=== PATIENT | male | born 1960 | race Caucasian/White ===

== ENCOUNTER 2019-03-23 08:08 | Outpatient (RCR) | payer OTHER, SELFPAY ==
[2019-01-19 09:01] LABS: INR 2.7; Prothrombin Time 27.8 Seconds (9.64-11.0)
[2019-02-23 08:40] LABS: INR 2.3; Prothrombin Time 24.4 Seconds (9.64-11.0)
[2019-03-23 08:31] LABS: Prothrombin Time 20.5 Seconds (9.64-11.0)
== END 2019-04-19 23:59 | disposition home or self-care (01) ==
LOC: CHSLAB 08:08
PROVIDERS: PCP Internal Medicine; Visit Provider Internal Medicine
DX: Z79.01 Long term (current) use of anticoagulants (principal)
CPT/HCPCS: 36415; 85610

== ENCOUNTER 2019-06-30 14:56 | Outpatient (CLI) | payer OTHER, SELFPAY ==
[2019-06-30 15:09] LABS: Basophils Absolute Auto 0.03 K/mm3 (0.00-0.10); Basophils Percent Auto 0.2 % (0.0-1.0); Eosinophils Absolute Auto 0.13 K/mm3 (0.02-0.50); Hemoglobin 15.7 g/dL (14.0-18.0); Immature Granulocyte Absolute 0.04 K/mm3 (0.00-0.00); Immature Granulocyte Percent A 0.3 % (0.0-0.0); Lymphocytes Absolute Auto 0.93 K/mm3 (1.10-4.50); Lymphocytes Percent Auto 7.2 % (18.0-42.0); Mean Corpuscular HGB Conc 34.9 g/dL (32.0-36.0); Mean Corpuscular Hemoglobin 31.5 pg (27.0-31.0); Mean Corpuscular Volume 90.4 fL (78.0-102.0); Mean Platelet Volume 10.7 fl (8.7-11.0); Monocytes Percent Auto 6.2 % (2.0-11.0); Neutrophils Absolute Auto 10.9 K/mm3 (1.7-7.2); Neutrophils Percent Auto 85.1 % (50.0-70.0); Platelet Count Result 155 K/mm3 (150-420); Red Blood Count 4.98 M/mm3 (4.70-6.10); Red Cell Distribution Width 12.4 % (11.6-14.4); White Blood Count 12.9 K/mm3 (4.8-10.8)
[2019-06-30 15:21] LABS: INR 2.2; Prothrombin Time 22.2 Seconds (9.64-11.0)
[2019-06-30 15:29] LABS: Alanine Aminotransferase 36 U/L (16-63); Albumin Level 4.1 g/dL (3.4-5.0); Alkaline Phosphatase 90 U/L (46-116); Anion Gap 14.9 mmol/L (7-16); Aspartate Amino Transferase 19 U/L (15-37); Bilirubin,Total 1.4 mg/dL (0.00-1.00); Blood Urea Nitrogen 11 mg/dL (7-18); Carbon Dioxide 27 mmol/L (21-32); Chloride 100 mmol/L (98-108); Estimated Glomerular Filt Rate > 60; Glucose 117 mg/dL (70-99); Osmolality Calculated 286 mOsm/kg (285-295); Potassium 3.9 mmol/L (3.5-5.1); Sodium 138 mmol/L (136-145); Total Protein 7.5 g/dL (6.4-8.2)
== END 2019-06-30 14:57 | disposition home or self-care (01) ==
LOC: CHSLAB 14:59
PROVIDERS: PCP Internal Medicine; Visit Provider Internal Medicine
DX: L03.113 Cellulitis of right upper limb (principal); R65.10 Systemic inflammatory response syndrome (SIRS) of non-infectious origin without acute organ dysfunction
CPT/HCPCS: 36415; 80053; 85025; 85610; 87040; 87070; 87075; 87077; 87186; 87205

== ENCOUNTER 2019-07-06 09:37 | Outpatient (RCR) | payer OTHER, SELFPAY ==
[2019-04-20 08:24] LABS: INR 2.1; Prothrombin Time 21.4 Seconds (9.64-11.0)
[2019-05-25 08:24] LABS: INR 2.3; Prothrombin Time 23.2 Seconds (9.64-11.0)
[2019-06-22 08:03] LABS: INR 2.3; Prothrombin Time 23.2 Seconds (9.64-11.0)
[2019-07-06 09:58] LABS: INR 2.1; Prothrombin Time 20.9 Seconds (9.64-11.0)
== END 2019-07-19 23:59 | disposition home or self-care (01) ==
LOC: CHSLAB 09:37
PROVIDERS: PCP Internal Medicine; Visit Provider Internal Medicine
DX: Z79.01 Long term (current) use of anticoagulants (principal)
CPT/HCPCS: 36415; 85610

== ENCOUNTER 2019-08-10 08:18 | Outpatient (CLI) | payer OTHER, SELFPAY ==
[2019-08-10 08:33] LABS: Basophils Absolute Auto 0.04 K/mm3 (0.00-0.10); Basophils Percent Auto 0.6 % (0.0-1.0); Eosinophils Absolute Auto 0.28 K/mm3 (0.02-0.50); Hematocrit 45.1 % (40.0-54.0); Hemoglobin 15.6 g/dL (14.0-18.0); Immature Granulocyte Absolute 0.02 K/mm3 (0.00-0.00); Immature Granulocyte Percent A 0.3 % (0.0-0.0); Lymphocytes Absolute Auto 1.15 K/mm3 (1.10-4.50); Lymphocytes Percent Auto 16.4 % (18.0-42.0); Mean Corpuscular HGB Conc 34.6 g/dL (32.0-36.0); Mean Corpuscular Hemoglobin 31.8 pg (27.0-31.0); Mean Corpuscular Volume 91.9 fL (78.0-102.0); Mean Platelet Volume 10.8 fl (8.7-11.0); Monocytes Absolute Auto 0.36 K/mm3 (0.10-0.90); Monocytes Percent Auto 5.1 % (2.0-11.0); Neutrophils Absolute Auto 5.2 K/mm3 (1.7-7.2); Neutrophils Percent Auto 73.6 % (50.0-70.0); Platelet Count Result 145 K/mm3 (150-420); Red Blood Count 4.91 M/mm3 (4.70-6.10); Red Cell Distribution Width 12.6 % (11.6-14.4)
[2019-08-10 08:34] LABS: Add Urine Microscopic? NO; Appearance Urine Clear (Clear); Bilirubin Urine Negative (Negative); Blood Urine Negative (Negative); Color Urine Yellow (Yellow); Glucose Urine UA Negative (Negative); Ketones Urine Negative (Negative); Leukocyte Esterase Ur Negative (Negative); Nitrate Urine Negative (Negative); Protein Urine Negative (Negative); Specific Grav Ur 1.025 (1.010-1.020); Urobilinogen Urine 0.2 mg/dL (0.2-1.0); pH Urine 6.5 (5.0-8.0)
[2019-08-10 08:46] LABS: INR 2.9; Prothrombin Time 28.9 Seconds (9.64-11.0)
[2019-08-10 09:51] LABS: Alanine Aminotransferase 35 U/L (16-63); Albumin Level 3.8 g/dL (3.4-5.0); Alkaline Phosphatase 83 U/L (46-116); Anion Gap 11.1 mmol/L (7-16); Aspartate Amino Transferase 28 U/L (15-37); Bilirubin,Total 0.5 mg/dL (0.00-1.00); Blood Urea Nitrogen 15 mg/dL (7-18); Calcium 8.4 mg/dL (8.5-10.1); Carbon Dioxide 29 mmol/L (21-32); Chloride 105 mmol/L (98-108); Cholesterol 173 mg/dL (0-200); Estimated Glomerular Filt Rate > 60; Glucose 94 mg/dL (70-99); HDL Direct 46 mg/dL (40-60); LDL Cholesterol Calculated 109 mg/dL (<130); Osmolality Calculated 292 mOsm/kg (285-295); Potassium 4.1 mmol/L (3.5-5.1); Prostate Specific Antigen 0.3 ng/mL (< OR = 4.0); Sodium 141 mmol/L (136-145); Thyroid Stimulating Hormone 0.98 uIU/mL (0.36-3.74); Total Protein 6.6 g/dL (6.4-8.2); Triglycerides 92 mg/dL (0-150)
== END 2019-08-10 08:19 | disposition home or self-care (01) ==
LOC: CHSLAB 08:19
PROVIDERS: PCP Internal Medicine; Visit Provider Internal Medicine
DX: Z00.00 Encounter for general adult medical examination without abnormal findings (principal); E78.5 Hyperlipidemia, unspecified; Z79.01 Long term (current) use of anticoagulants; Z12.5 Encounter for screening for malignant neoplasm of prostate
CPT/HCPCS: 36415; 80053; 80061; 81003; 84153; 84443; 85025; 85610; G0103

== ENCOUNTER 2019-12-07 07:56 | Outpatient (RCR) | payer OTHER, SELFPAY ==
[2019-09-22 08:51] LABS: INR 2.7; Prothrombin Time 26.8 Seconds (9.64-11.0)
[2019-10-27 08:24] LABS: INR 2.9; Prothrombin Time 28.5 Seconds (9.64-11.0)
[2019-11-23 09:01] LABS: INR 1.6; Prothrombin Time 16.4 Seconds (9.64-11.0)
[2019-12-07 08:20] LABS: INR 2.1; Prothrombin Time 20.9 Seconds (9.64-11.0)
== END 2019-12-21 23:59 | disposition home or self-care (01) ==
LOC: CHSLAB 07:56
PROVIDERS: PCP Internal Medicine; Visit Provider Internal Medicine
DX: Z79.01 Long term (current) use of anticoagulants (principal)
CPT/HCPCS: 36415; 85610

== ENCOUNTER 2020-03-21 08:08 | Outpatient (RCR) | payer OTHER, SELFPAY ==
[2020-01-18 08:50] LABS: INR 2.2
[2020-02-22 08:17] LABS: INR 1.9; Prothrombin Time 20.5 Seconds (9.50-12.10)
[2020-03-21 08:28] LABS: INR 1.7; Prothrombin Time 17.3 Seconds (9.50-12.10)
== END 2020-04-17 23:59 | disposition home or self-care (01) ==
LOC: CHSLAB 08:08
PROVIDERS: PCP Internal Medicine; Visit Provider Internal Medicine
DX: Z79.01 Long term (current) use of anticoagulants (principal)
CPT/HCPCS: 36415; 85610

== ENCOUNTER 2022-02-05 11:57 | Outpatient (CLI) | payer OTHER, SELFPAY ==
[2022-02-05 12:19] LABS: Basophils Absolute Auto 0.04 K/mm3 (0.00-0.10); Basophils Percent Auto 0.6 % (0.0-1.0); Eosinophils Percent Auto 2.9 % (1.0-6.0); Hematocrit 45.2 % (40.0-54.0); Hemoglobin 15.5 g/dL (14.0-18.0); Immature Granulocyte Absolute 0.03 K/mm3 (0.00-0.00); Immature Granulocyte Percent A 0.4 % (0.0-0.0); Lymphocytes Absolute Auto 1.36 K/mm3 (1.10-4.50); Lymphocytes Percent Auto 20.1 % (18.0-42.0); Mean Corpuscular HGB Conc 34.3 g/dL (32.0-36.0); Mean Corpuscular Hemoglobin 31.9 pg (27.0-31.0); Mean Platelet Volume 10.4 fl (8.7-11.0); Monocytes Absolute Auto 0.39 K/mm3 (0.10-0.90); Monocytes Percent Auto 5.8 % (2.0-11.0); Neutrophils Absolute Auto 4.8 K/mm3 (1.7-7.2); Neutrophils Percent Auto 70.2 % (50.0-70.0); Platelet Count Result 173 K/mm3 (150-420); Red Blood Count 4.86 M/mm3 (4.70-6.10); Red Cell Distribution Width 12.3 % (11.6-14.4); White Blood Count 6.8 K/mm3 (4.8-10.8)
[2022-02-05 12:20] LABS: Add Urine Microscopic? NO; Appearance Urine Clear (Clear); Bilirubin Urine Negative (Negative); Blood Urine Negative (Negative); Color Urine Light Yellow (Yellow); Glucose Urine UA Negative (Negative); Ketones Urine Negative (Negative); Leukocyte Esterase Ur Negative (Negative); Nitrate Urine Negative (Negative); Protein Urine Negative (Negative); Urobilinogen Urine 0.2 mg/dL (0.2-1.0)
[2022-02-05 12:49] LABS: Alanine Aminotransferase 27 U/L (16-63); Albumin Level 3.9 g/dL (3.4-5.0); Alkaline Phosphatase 85 U/L (46-116); Anion Gap 4 mmol/L (8-16); Aspartate Amino Transferase 15 U/L (15-37); Bilirubin,Total 0.5 mg/dL (0.00-1.00); Blood Urea Nitrogen 13 mg/dL (7-18); Calcium 8.3 mg/dL (8.5-10.1); Carbon Dioxide 31 mmol/L (21-32); Chloride 105 mmol/L (98-108); Estimated Glomerular Filt Rate > 60; Glucose 104 mg/dL (70-99); Osmolality Calculated 290 mOsm/kg (285-295); Potassium 4.1 mmol/L (3.5-5.1); Sodium 140 mmol/L (136-145); Total Protein 6.8 g/dL (6.4-8.2)
== END 2022-02-05 11:58 | disposition home or self-care (01) ==
LOC: CHSLAB 12:00
PROVIDERS: PCP Internal Medicine; Visit Provider Internal Medicine
DX: R39.198 Other difficulties with micturition (principal)
CPT/HCPCS: 36415; 80053; 81003; 85025; 87086

== ENCOUNTER 2022-07-23 09:01 | Outpatient (CLI) | payer OTHER, SELFPAY ==
[2022-07-23 09:40] LABS: Cholesterol 169 mg/dL (0-200); HDL Direct 43 mg/dL (40-60); LDL Cholesterol Calculated 100 mg/dL (<130); Triglycerides 128 mg/dL (0-150)
== END 2022-07-23 09:02 | disposition home or self-care (01) ==
LOC: CHSLAB 09:03
PROVIDERS: PCP Internal Medicine; Visit Provider Internal Medicine
DX: E78.5 Hyperlipidemia, unspecified (principal)
CPT/HCPCS: 36415; 80061

== ENCOUNTER 2022-10-29 09:14 | Outpatient (CLI) | payer OTHER, SELFPAY ==
[2022-10-29 09:39] LABS: INR 2.5; Prothrombin Time 25.6 Seconds (9.50-12.10)
== END 2022-10-29 09:15 | disposition home or self-care (01) ==
LOC: CHSLAB 09:16
PROVIDERS: PCP Internal Medicine; Visit Provider Internal Medicine
DX: Z86.718 Personal history of other venous thrombosis and embolism (principal)
CPT/HCPCS: 36415; 85610

== ENCOUNTER 2023-12-02 09:12 | Outpatient (CLI) | payer OTHER, SELFPAY ==
[2023-12-02 09:31] LABS: Basophils Absolute Auto 0.03 K/mm3 (0.00-0.10); Basophils Percent Auto 0.5 % (0.0-1.0); Eosinophils Absolute Auto 0.18 K/mm3 (0.02-0.50); Eosinophils Percent Auto 3.1 % (1.0-6.0); Hematocrit 46.3 % (40.0-54.0); Hemoglobin 15.7 g/dL (14.0-18.0); Immature Granulocyte Absolute 0.02 K/mm3 (0.00-0.00); Immature Granulocyte Percent A 0.3 % (0.0-0.0); Mean Corpuscular HGB Conc 33.9 g/dL (32-36); Mean Corpuscular Volume 91.5 fL (78.0-102.0); Mean Platelet Volume 10.1 fl (8.7-11.0); Monocytes Absolute Auto 0.39 K/mm3 (0.10-0.90); Monocytes Percent Auto 6.6 % (2.0-11.0); Neutrophils Absolute Auto 4.27 K/mm3 (1.70-7.20); Neutrophils Percent Auto 72.5 % (50.0-70.0); Platelet Count Result 182 K/mm3 (150-420); Red Blood Count 5.06 M/mm3 (4.70-6.10); Red Cell Distribution Width 12.4 % (11.6-14.4); White Blood Count 5.9 K/mm3 (4.8-10.8)
[2023-12-02 09:34] LABS: Add Urine Microscopic? NO; Appearance Urine Clear (Clear); Bilirubin Urine Negative (Negative); Blood Urine Negative (Negative); Color Urine Light Yellow (Yellow); Glucose Urine UA Negative (Negative); Ketones Urine Negative (Negative); Leukocyte Esterase Ur Negative (Negative); Nitrate Urine Negative (Negative); Protein Urine Negative (Negative); Urobilinogen Urine 0.2 mg/dL (0.2-1.0); pH Urine 6.5 (5.0-8.0)
[2023-12-02 09:48] LABS: INR 1.9; Prothrombin Time 20.2 Seconds (9.50-12.1)
[2023-12-02 10:25] LABS: Alanine Aminotransferase 32 U/L (16-63); Albumin Level 3.8 g/dL (3.4-5.0); Alkaline Phosphatase 90 U/L (46-116); Anion Gap 5 mmol/L (4-12); Aspartate Amino Transferase 20 U/L (15-37); Bilirubin,Total 0.8 mg/dL (0.00-1.00); Blood Urea Nitrogen 17 mg/dL (7-18); Calcium 8.6 mg/dL (8.5-10.1); Carbon Dioxide 31 mmol/L (21-32); Chloride 104 mmol/L (98-108); Cholesterol 178 mg/dL (0-200); Estimated Glomerular Filt Rate > 60; Glucose 103 mg/dL (70-99); HDL Direct 46 mg/dL (40-60); LDL Cholesterol Calculated 119 mg/dL (<130); Osmolality Calculated 291 mOsm/kg (285-295); Potassium 4.3 mmol/L (3.5-5.1); Prostate Specific Antigen 0.2 ng/mL (< OR = 4.0); Sodium 140 mmol/L (136-145); Thyroid Stimulating Hormone 1.37 uIU/mL (0.36-3.74); Total Protein 6.9 g/dL (6.4-8.2); Triglycerides 66 mg/dL (0-150)
== END 2023-12-02 09:13 | disposition home or self-care (01) ==
LOC: CHSLAB 09:15
PROVIDERS: PCP Internal Medicine; Visit Provider Internal Medicine
DX: D68.318 Other hemorrhagic disorder due to intrinsic circulating anticoagulants, antibodies, or inhibitors (principal)
CPT/HCPCS: 36415; 80053; 80061; 81003; 84153; 84443; 85025; 85610; G0103

== ENCOUNTER 2024-04-13 10:21 | Outpatient (RCR) | payer OTHER, SELFPAY ==
[2024-04-13 10:54] LABS: INR 2.3; Prothrombin Time 23.3 Seconds (9.50-12.1)
--- OUTSIDE RECORDS SUMMARY | 2024-04-13 11:41 | XMS_ITS | Clinical Summary ---
Author Organization [facility] Address [facility] [place] [address] Care Team Providers Care Billet Cutter Name Role Phone Benny Pacheco MD Primary Care Provider [phone] Allergies No known active allergies Medications warfarin 7.5 MG tablet TAKE 1 TABLET BY MOUTH DAILY IN ADDITION TO ONE 2MG TO EQUAL 9.5MG 0 Active warfarin 1 MG tablet 1 Active omeprazole (PRILOSEC) 40 MG capsule 3 Active pravastatin (PRAVACHOL) 20 MG tablet 3 Active albuterol sulfate HFA 108 (90 Base) MCG/ACT inhalerIndicatio ns:Viral respiratory illness Inhale 2 puffs into the lungs every 6 (six) hours as needed for Wheezing. 6.7 g 3 Active Active Problems Problem Noted Date Diagnosed Date Change in bowel habits 03/04/2023 Positive fecal occult blood test 03/04/2023 Encounters Date Type Department Care Team Description 04/06/2024 6:46 AM SHORT ORDER COOK - 04/06/2024 11:59 PM SHORT ORDER COOK Hospital Encounter [facility] [address] [place] [address] Benny Pacheco MD Discharge Disposition: Home or Self Care (Routine Discharge) 04/06/2024 6:45 AM SHORT ORDER COOK Hospital Encounter [facility] [address] [place] [address] Benny Pacheco MD Discharge Disposition: Home or Self Care (Routine Discharge) 04/06/2024 Orders Only [facility] [address] [place] [address] Benny Pacheco MD 04/06/[address] [facility] [address] [place] [address] Benny Pacheco MD 04/06/2024 Travel 03/09/2024 6:40 AM SHORT ORDER COOK - 03/09/2024 11:59 PM SHORT ORDER COOK Hospital Encounter [facility] [place] [address] Benny Pacheco MD Discharge Disposition: Home or Self Care (Routine Discharge) 03/09/[address] [facility] [place] [address] Benny Pacheco MD 03/09/2024 Travel 02/10/2024 6:35 AM SHORT ORDER COOK - 02/10/2024 11:59 PM SHORT ORDER COOK Hospital Encounter [facility] [address] [address] Benny Pacheco MD Discharge Disposition: Home or Self Care (Routine Discharge) 02/10/[address] [facility] [address] [place] [address] Benny Pacheco MD 02/10/2024 Travel from Last 3 Months Family History Medical History Relation Comments Diabetes Mother Heart Disease Mother Relation Status Comments Mother Social History Tobacco Use Types Packs/Day Years Used Date Smoking Tobacco: Never Smokeless Tobacco: Never Tobacco Cessation:Counseling Given: Not Answered Alcohol Use Standard Drinks/Week Comments Not Currently 0 (1 standard drink = 0.6 oz pur e alcohol) Comments Unknown Sex and Gender Information Value Date Recorded Sex Assigned at Female 04/06/2024 6:36 AM SHORT ORDER COOK Legal Sex Male 8:16 AM SHORT ORDER COOK Gender Identity Not on file Sexual Orientation Not on file Last Filed Vital Signs Vital Sign Reading Time Taken Comments Blood Pressure 142/86 05/07/2023 10:50 AM CDT Pulse 64 05/07/2023 10:13 AM CDT Temperature 36.5 C (97.7 F) 05/07/2023 10:13 AM CDT Respiratory Rate 18 05/07/2023 10:50 AM CDT Oxygen Saturation 95% 05/07/2023 10:20 AM CDT Inhaled Oxygen Concentration - - Weight 104.3 kg (230 lb) 05/01/2023 12:10 PM CDT Height 175.3 cm (5' 9 ) 05/01/2023 12:10 PM CDT Body Mass Index 33.97 05/01/2023 12:10 PM CDT Plan of Treatment Health Maintenance Due Date Last Done Comments Cervical Cancer Screening Pa p Smear (Age 30 to 64) Every 3 Years 1959 Annual Physical 1962 Hepatitis C 1977 DTaP, Tdap and Td Vaccines ( 1 - Tdap) 1978 Cervical Cancer Screening Pa p with HPV Testing (Age 30 to 64) Every 5 Years 1989 Cervical Cancer Screening with HPV 1989 Mammogram Screening 1999 COVID-19 Vaccine (2023-2 5 season) 2023 Influenza Adult (#1) 2023 PHQ-2 (Physician [place]) 02/19/2024 Colorectal Cancer Screening Colonoscopy (10 Years) 05/06/2033 05/07/2023, 05/07/2023 RSV Immunization or 60+ Years (1 - 1-dose 75+ series) 2034 Zoster Vaccines Completed 11/16/2018, 09/14/2018 Colorectal Cancer Screening FIT/FOBT (1 Year) Discontinued 03/11/2022, 03/10/2022 Meningococcal B Vaccine Aged Out No l onger eligible based on patient's age to complete this topic Meningococcal Vaccine Aged Out No susannah dianna eligible based on patient's age to complete this topic Pneumococcal Vaccine: Pediatrics (0 to 5 Years) and At-Risk Patients (6 to 64 Years) Aged Out No longer eligible based on patient's age to complete this topic RSV Immunizations Under 20 Months Aged Out No longer eligible based on patient's age to complete this topic Medical Devices Implanted Type Area Environmental Planning Engineer Device Identifier Shelf Expiration Date Model / Serial / Lot Pin Pin Procedures Procedure Name Priority Date/Time Associated Diagnosis Comments ECG 12-LEAD Routine 04/06/2024 7:04 AM SHORT ORDER COOK Retinal hemorrhage PARTIAL THROMBOPLASTIN TIME,PTT Routine 04/06/2024 6:53 AM SHORT ORDER COOK Retinal hemorrhage PROTHROMBIN TIME, VENOUS Routine 04/06/2024 6:53 AM SHORT ORDER COOK Retinal hemorrhage HC URINALYSIS AUTO W/O MICRO Routine 04/06/2024 6:53 AM SHORT ORDER COOK Retinal hemorrhage CBC W/DIFF AUTOMATED Routine 04/06/2024 6:53 AM SHORT ORDER COOK Retinal hemorrhage COMPREHENSIVE METABOLIC PANEL Routine 04/06/2024 6:53 AM SHORT ORDER COOK Retinal hemorrhage PROTHROMBIN TIME, VENOUS Routine 03/09/2024 6:47 AM SHORT ORDER COOK [facility] (current) use of anticoagulants PROTHROMBIN TIME, VENOUS Routine 02/10/2024 6:44 AM SHORT ORDER COOK [facility] (current) use of anticoagulants COLONOSCOPY Routine 05/07/2023 8:10 AM CDT OCCULT BLOOD, FECES Routine 03/11/2022 8 :00 AM SHORT ORDER COOK [facility] (current) use of anticoagulants GI bleed from Last 3 Months or Most Recently Relevant to Health Maintenance Results * ECG 12-Lead (04/06/2024 7:04 AM SHORT ORDER COOK) 04/06/2024 7:04 AM SHORT ORDER COOK Narrative [facility] - 04/10/2024 3:12 PM SHORT ORDER COOK [facility] [place] Test Date: 2024-04-06 Pat Name: MARLON NAVARRO Department: 80 Room: Gender: Male Film Touch Up Inspector: : 1960 Requested By: BENNY PACHECO Order Number: [id number] Magda NEVAREZ: Graeme Davis Measurements Intervals [place] Rate: 53 P: 32 WV: 188 QRS: 43 QRSD: 110 T: 77 QT: 414 QTc: 390 Interpretive Statements SINUS BRADYCARDIA NONSPECIFIC T-WAVE ABNORMALITY Compared to ECG 09/28/2022 12:47:52 T-wave abnormality now present Sinus rhythm no longer present Ventricular premature complex(es) no longer present T ORDER COOK Procedure Note Graeme Davis MD - 04/10/2024 [facility] Test Date: 2024-04-06 Pat Name: MARLON NAVARRO Department: 80 Room: Gender: Male Film Touch Up Inspector: : 1960 Requested By: BENNY PACHECO Order Number: [id number] Reading MD: Graeme Davis Measurements Intervals [place] Rate: 53 P: 32 WV: 188 QRS: 43 QRSD: 110 T: 77 QT: 414 QTc: 390 Interpretive Statements SINUS BRADYCARDIA NONSPECIFIC T-WAVE ABNORMALITY Compared to ECG 09/28/2022 12:47:52 T-wave abnormality now present Sinus rhythm no longer present Ventricular premature complex(es) no longer present T ORDER COOK us Benny Pacheco MD ECG ORDERABLES Final Result [facility] * (ABNORMAL) URINALYSIS (04/06/2024 6:53 AM SHORT ORDER COOK) COLOR (U) LIGHT YELLOW 04/06/2024 8:39 AM [facility] TRANSPARENCY CLEAR 04/06/2024 8:39 AM [facility] SPECIFIC GRAVITY (U) 1.020 1.002 - 1.030 04/06/2024 8:39 AM [facility] U PH 5.0 4.5 - 8.0 04/06/2024 8:39 AM [facility] LEUKOCYTES (U) NEGATIVE NEGATIVE 04/06/2024 8:39 AM [facility] NITRITES NEGATIVE NEGATIVE 04/06/2024 8:39 AM [facility] PROTEIN RANDOM (U) 1+(A) NEGATIVE 04/06/2024 8:39 AM [facility] GLUCOSE (U) NEGATIVE NEGATIVE 04/06/2024 8:39 AM [facility] KETONES MG/DL (U) NEGATIVE NEGATIVE 04/06/2024 8:39 AM [facility] UROBILINOGEN NORMAL NORMAL EU/DL 04/06/2024 8:39 AM [facility] BILIRUBIN (U) NEGATIVE NEGATIVE 04/06/2024 8:39 AM [facility] BLOOD (U) 2+(A) NEGATIVE 04/06/2024 8:39 AM [facility] WBC/HPF 0-5 /HPF 04/06/2024 8:39 AM [facility] RBC/HPF 0-2 /HPF 04/06/2024 8:39 AM [facility] EPI/HPF 0-5 /HPF 04/06/2024 8:39 AM [facility] BACTERIA (U) TRACE /HPF 04/06/2024 8:39 AM [facility] MUCUS 2+ 04/06/2024 8:39 AM [facility] URINE SPECIMEN OBTAINED BY CLEAN CATCH PROCEDURE / Unknown 04/06/2024 6:53 AM SHORT ORDER COOK Benny Pacheco MD URINE ORDERABLES Final Result [facility] [address] [place] [address], [place] [phone] * (ABNORMAL) PARTIAL THROMBOPLASTIN TIME,PTT (04/06/2024 6:53 AM SHORT ORDER COOK) PTT 44.3(H) 26.4 - 36.1 SEC 04/06/2024 7:44 AM [facility] 04/06/2024 6:53 AM SHORT ORDER COOK us Benny Pacheco MD LABORATORY Final Result [facility] [address] [place] [address], [place] [phone] * (ABNORMAL) PROTIME/INR, VENOUS (04/06/2024 6:53 AM SHORT ORDER COOK) Only the most recent of3 resultswithin the time period is included. PROTIME 37.5(H) 9.4 - 12.5 SEC 04/06/2024 7:44 AM SHORT ORDER COOK [facility] INR 3.3(H) 0.9 - 1.1 04/06/2024 7:44 AM SHORT ORDER COOK [facility] Comment: Recommended INR Therapeutic Goals: 2.0-3.0 Routine Therapy 2.5-3.5 Mechanical Prosthetic Valves (High Risk) 04/06/2024 6:53 AM SHORT ORDER COOK us Benny Pacheco MD LABORATORY Final Result Performing Organization Address City/[facility]/ZIP Co de Phone Number [facility] [address] [place] [address], [place] [phone] * (ABNORMAL) COMPREHENSIVE METABOLIC PANEL (04/06/2024 6:53 AM SHORT ORDER COOK) GLUCOSE 103(H) 70 - 99 MG/DL 04/06/2024 7:53 AM SHORT ORDER COOK [facility] BUN 13 7 - 18 MG/DL 04/06/2024 7:53 AM SHORT ORDER COOK [facility] CREATININE S/P/B 1.20 0.7 - 1.3 MG/DL 04/06/2024 7:53 AM SHORT ORDER COOK [facility] SODIUM S/P/B 141 136 - 145 MMOL/L 04/06/2024 7:53 AM SHORT ORDER COOK [facility] POTASSIUM S/P/B 3.8 3.5 - 5.1 MMOL/L 04/06/2024 7:53 AM [facility] CHLORIDE S/P/B 105 100 - 108 MMOL/L 04/06/2024 7:53 AM [facility] CO2 29.3 21 - 32 MMOL/L 04/06/2024 7:53 AM [facility] CALCIUM S/P/B 8.6 8.5 - 10.1 MG/DL 04/06/2024 7:53 AM [facility] BILIRUBIN TOTAL S/P/B 0.8 0.2 - 1.2 MG/DL 04/06/2024 7:53 AM [facility] Comment: THIS ASSAY IS NOT RECOMMENDED FOR PATIENTS UNDERGOING TREATMENT WITH ELTROMBOPAG DUE TO THE POTENTIAL FOR FALSELY ELEVATED RESULTS. TOTAL PROTEIN S/P/B 7.0 6.4 - 8.2 G/DL 04/06/2024 7:53 AM [facility] ALBUMIN S/P/B 3.8 3.4 - 5.0 G/DL 04/06/2024 7:53 AM [facility] AST 23 15 - 37 U/L 04/06/2024 7:53 AM [facility] ALT 34 16 - 60 U/L 04/06/2024 7:53 AM [facility] ALKALINE PHOSPHATASE S/P/B 76 50 - 136 U/L 04/06/2024 7:53 AM [facility] ANION GAP 6.7 5 - 15 MMOL/L 04/06/2024 7:53 AM [facility] BUN CREATININE RATIO 10.8 6 - 26 04/06/2024 7:53 AM [facility] A/G RATIO 1.2 1.0 - 2.0 RATIO 04/06/2024 7:53 AM [facility] GFR ESTIMATE 68(L) >90 ML/MIN/1.7 3 M2 04/06/2024 7:53 AM [facility] Comment: NOTE: eGFR is not calculated for patients <18 years of age. This is an estimated GFR calculation using the new CKD EPI creatinine equation without race and so does not require a correction factor for race. This estimated GFR should not be used for calculating drug doses. 04/06/2024 6:53 AM SHORT ORDER COOK Benny Pacheco MD LABORATORY Final Result [facility] [address] [place] [address], * (ABNORMAL) CBC W/DIFF AUTOMATED (04/06/2024 6:53 AM SHORT ORDER COOK) WBC 6.05 4.50 - 11.00 x10'3/uL 04/06/2024 7:35 AM [facility] RBC 5.00 4.70 - 6.10 x10'6/uL 04/06/2024 7:35 AM [facility] HGB 15.8 14.0 - 18.0 G/DL 04/06/2024 7:35 AM [facility] HCT 46.2 43.0 - 54.0 % 04/06/2024 7:35 AM [facility] MCV 92.4 80.0 - 94.0 FL 04/06/2024 7:35 AM [facility] MCH 31.6(H) 27.0 - 31.0 PG 04/06/2024 7:35 AM [facility] MCHC 34.2 32.0 - 36.0 G/DL 04/06/2024 7:35 AM [facility] RDW 12.1 11.5 - 14.5 % 04/06/2024 7:35 AM [facility] PLT 183 130 - 400 x10'3/uL 04/06/2024 7:35 AM [facility] MPV 10.5 9.3 - 12.2 FL 04/06/2024 7:35 AM [facility] CBC COMMENT AUTOMATED RBC MORPHOLOGY AND PLATELET EVALUATION NORMAL 04/06/2024 7:35 AM [facility] NEUTROPHILS % 66.0 % 04/06/2024 7:35 AM [facility] LYMPHOCYTES % 22.1 % 04/06/2024 7:35 AM [facility] MONOCYTES % 6.8 % 04/06/2024 7:35 AM [facility] EOSINOPHILS 4.0 % 04/06/2024 7:35 AM [facility] BASOPHILS 0.8 % 04/06/2024 7:35 AM [facility] IMMATURE GRANS % 0.3 % 04/06/19 7:35 AM [facility] NRBC % 0.0 % 04/06/2024 7:35 AM [facility] ABS. NEUTROPHILS TOTAL 3.99 1.80 - 7.70 x10'3/uL 04/06/2024 7:35 AM [facility] ABS. LYMPHOCYTES 1.34 1.00 - 4.80 x10'3/uL 04/06/2024 7:35 AM [facility] ABS. MONOCYTES 0.41 0.30 - 0.82 x10'3/uL 04/06/2024 7:35 AM [facility] ABS. EOSINOPHILS 0.24 0.04 - 0.54 x10'3/uL 04/06/2024 7:35 AM SHORT ORDER COOK [facility] ABS. BASOPHILS 0.05 0.01 - 0.08 x10'3/uL 04/06/2024 7:35 AM SHORT ORDER COOK [facility] ABS. IMMATURE GRANULOCYTES 0.02 0.00 - 0.49 x10'3/uL 04/06/2024 7:35 AM SHORT ORDER COOK [facility] ABS. NUCLEATED RBC'S 0.00 0.00 - 0.01 x10'3/uL 04/06/2024 7:35 AM SHORT ORDER COOK [facility] 04/06/2024 6:53 AM SHORT ORDER COOK us Benny Pacheco MD LABORATORY Final Result Performing Organization Address [facility]/ZIP Co de Phone Number [facility] [address] [place] [address], [place] [phone] * OCCULT BLOOD, FECES (03/11/2022 8:00 AM SHORT ORDER COOK) OCCULT BLOOD FECAL NEGATIVE NEGATIVE 03/12/2022 7:55 AM SHORT ORDER COOK [facility] STOOL SPECIMEN / Unknown 03/11/2022 8:00 AM SHORT ORDER COOK us Benny Pacheco MD BODY FLUIDS AND STOOLS ORDERABL ES Final Result Performing Organization Address City/[facility]/ZIP Co de Phone Number [facility] [address] [place] [address], [place] [phone] from Last 3 Months or Most Recently Relevant to Health Maintenance Insurance [facility] [place] [address] [facility] Care Teams Billet Cutter Relationship Specialty Start Date End Date Benny Pacheco MD [address] [place] [address] PCP - General INTERNAL MEDICINE 03/28/20
== END 2024-07-12 23:59 | disposition home or self-care (01) ==
LOC: CHSLAB 10:21
PROVIDERS: PCP Internal Medicine; Visit Provider Internal Medicine
DX: Z51.81 Encounter for therapeutic drug level monitoring (principal); Z79.01 Long term (current) use of anticoagulants
CPT/HCPCS: 36415; 85610

== ENCOUNTER 2024-10-12 09:20 | Outpatient (CLI) | payer OTHER, SELFPAY ==
[2024-10-12 09:37] LABS: Hematocrit 47.7 % (37.0-46.0); Hemoglobin 16.0 g/dL (12.4-15.3); Mean Corpuscular HGB Conc 33.5 g/dL (32-36); Mean Corpuscular Hemoglobin 31.3 pg (27.0-31.0); Mean Corpuscular Volume 93.2 fL (78.0-102.0); Platelet Count Result 173 K/mm3 (150-420); Red Blood Count 5.12 M/mm3 (4.70-6.10); White Blood Count 6.4 K/mm3 (4.8-10.8)
[2024-10-12 09:39] LABS: Add Urine Microscopic? NO; Appearance Urine Clear (Clear); Glucose Urine UA Negative (Negative); Leukocyte Esterase Ur Negative (Negative); Nitrate Urine Negative (Negative); Specific Grav Ur 1.020 (1.010-1.020)
[2024-10-12 09:52] LABS: INR 2.1; Prothrombin Time 21.9 Seconds (9.50-12.1)
[2024-10-12 10:21] LABS: Alanine Aminotransferase 21 U/L (6-50); Albumin Level 4.5 g/dL (3.5-5.1); Alkaline Phosphatase 72 U/L (38-126); Anion Gap 6 mmol/L (4-12); Aspartate Amino Transferase 28 U/L (17-59); Bilirubin,Total 1.0 mg/dL (0.2-1.3); Blood Urea Nitrogen 13 mg/dL (9-20); Calcium 9.5 mg/dL (8.4-10.2); Carbon Dioxide 30 mmol/L (22-30); Chloride 104 mmol/L (98-107); Cholesterol 201 mg/dL (0-200); Estimated Glomerular Filt Rate > 60; Glucose 105 mg/dL (65-110); HDL Direct 50 mg/dL; Osmolality Calculated 290 mOsm/kg (285-295); Potassium 4.6 mmol/L (3.4-5.0); Sodium 140 mmol/L (137-145); Total Protein 7.0 g/dL (6.3-8.2); Triglycerides 116 mg/dL (<150)
[2024-10-12 10:52] LABS: Thyroid Stimulating Hormone 1.290 uIU/mL (0.465-4.680)
== END 2024-10-12 09:21 | disposition home or self-care (01) ==
LOC: CHSLAB 09:22
PROVIDERS: PCP Internal Medicine; Visit Provider Internal Medicine
DX: E78.5 Hyperlipidemia, unspecified (principal); Z79.01 Long term (current) use of anticoagulants
CPT/HCPCS: 36415; 80053; 80061; 81003; 84443; 85027; 85610